=== PATIENT | male | born 1995 | race Hispanic/Latino ===

== ENCOUNTER 2019-03-06 23:04 | Emergency (ER) | payer OTHER ==
[2019-03-06] MEDS ORDERED: TETANUS/DIPHTHERIA TOXOID [ADULT] 0.5 ML VIAL IM ONE (23:55)
== END 2019-03-07 00:08 | disposition home or self-care (01) ==
LOC: EDH 23:04
DX: S30.811A Abrasion of abdominal wall, initial encounter (principal); S80.811A Abrasion, right lower leg, initial encounter; F13.129 Sedative, hypnotic or anxiolytic abuse with intoxication, unspecified; W45.8XXA Other foreign body or object entering through skin, initial encounter; Y93.02 Activity, running; Y92.89 Other specified places as the place of occurrence of the external cause; Y99.8 Other external cause status
CPT/HCPCS: 90471; 90714